=== PATIENT | female | born 1995 | race Caucasian/White ===

== ENCOUNTER → 2025-03-14 | Outpatient (CLI) | payer MEDICAID, SELFPAY ==
--- NOTE | 2025-03-14 09:19 | US_ITS ---
PROCEDURE: ABDOMEN LIMITED 03/14/2025 REASON FOR EXAM: FREQ NAUSEA TECHNIQUE: Procedure Code: USABDL Modality: US Procedure: ABDOMEN LIMITED COMPARISON: None. FINDINGS: Liver: Diffusely echogenic suggesting fatty infiltration. The liver measures 14.8 cm in vertical dimension in the midclavicular line. There is normal hepatopetal flow in the portal venous system. Gallbladder: No stones, sludge, wall thickening or tenderness. Common bile duct: 4 mm. Pancreas: Visualized portions are sonographically unremarkable. Other: The right kidney measures 11.3 x 5.3 x 4.2 cm and is unremarkable. No right upper quadrant ascites. US/Abdomen Limited IMPRESSION: FATTY LIVER. NO CHOLELITHIASIS OR BILIARY DILATION. Reading Location: [id number]
== END | disposition home or self-care (01) ==
LOC: OPUS 09:18
PROVIDERS: PCP Family Medicine
DX: K59.00 Constipation, unspecified (principal)
CPT/HCPCS: 76705

== ENCOUNTER → 2025-04-17 | Outpatient (CLI) | payer MEDICAID, SELFPAY ==
--- NOTE | 2025-04-17 09:56 | US_ITS ---
PROCEDURE: US/Elastography Parenchyma/Organ
== END | disposition home or self-care (01) ==
LOC: US 09:56
PROVIDERS: PCP Family Medicine; Referring Provider Internal Medicine Gastroenterology; Visit Provider Internal Medicine Gastroenterology
DX: K76.0 Fatty (change of) liver, not elsewhere classified (principal)
CPT/HCPCS: 76981